=== PATIENT | male | born 1955 | race Caucasian/White ===

== ENCOUNTER → 2016-07-03 | Outpatient (CLI) | payer OTHER ==
[~2016-07-03] MED LIST: AUGM875T27 PO; LEVO25TA5 PO; PRIL20TA2 PO; ZOCO10TA PO
--- NOTE | 2016-07-03 08:35 | REP ---
Clinical: History of gallbladder polyps for follow up. Comparison: 07/25/2015. Findings: Liver and visualized pancreas are normal in contour, size, and echogenicity without focal hepatic or pancreatic lesions identified. The previously noted sub centimeter hemangioma in the right lobe is not visualized on current examination. Gallbladder again demonstrates multiple polyps up to 5.3 mm and essentially unchanged. No wall thickening, gallstones, or pericholecystic fluid. No biliary ductal dilatation is appreciated and the common bile duct measures 5.5 mm diameter. The right kidney is normal in reniform shape and appearance measuring 10.3 x 5.8 x 5.4 cm without hydronephrosis. Abdominal aorta normal. No ascites. Impression: 1. Multiple gallbladder polyps similar to prior examination measuring up to 5.3 mm. 2. Otherwise normal right upper quadrant ultrasound. The previously noted sub centimeter hepatic hemangioma not visualized on current examination. Signed by Josemanuel Escobar MD 07/03/2016 08:26 A
== END ==
LOC: M RAD 07:25
PROVIDERS: ATTEND Surgery
DX: R93.2 Abnormal findings on diagnostic imaging of liver and biliary tract (principal)

== ENCOUNTER 2017-10-02 06:47 | Day surgery (SDC) | payer OTHER ==
[2017-10-02] MEDS: NS 1,000 ML IV (07:00)
[2017-10-02] MEDS ORDERED: PROPOFOL 200 MG/20 ML VIAL As Ordered (07:14)
[2017-10-02] MEDS ORDERED: LIDOCAINE 2% INJ 100 MG/5 ML SDV (FOR ANES.) As Ordered (07:14)
== END 2017-10-02 08:28 | disposition home or self-care (01) ==
LOC: M OPP 06:47
DX: Z12.11 Encounter for screening for malignant neoplasm of colon (principal); D12.3 Benign neoplasm of transverse colon; D12.2 Benign neoplasm of ascending colon; K57.30 Diverticulosis of large intestine without perforation or abscess without bleeding; Z86.010 Personal history of colon polyps; E03.9 Hypothyroidism, unspecified; E78.00 Pure hypercholesterolemia, unspecified; Z79.899 Other long term (current) drug therapy; Z83.71 Family history of colonic polyps; Z80.52 Family history of malignant neoplasm of bladder; Z83.3 Family history of diabetes mellitus; Z80.6 Family history of leukemia; Z80.42 Family history of malignant neoplasm of prostate
CPT/HCPCS: 45380